=== PATIENT | female | born 1960 | race Caucasian/White ===

== ENCOUNTER → 2016-04-09 | Outpatient (CLI) | payer OTHER ==
--- NOTE | 2016-04-09 17:20 | MA ---
Digital Mammogram Right Breast With iCAD Analysis Clinical Indications: Evaluate palpable area identified by the patient in the outer right breast. Technique: Standard cephalocaudal projection of the right breast is obtained. Digital breast tomosynt hesis was performed in the MLO projection with reconstruction at 1.0 mm slice thickness and composite MLO views reconstructed. Additional oblique and true lateral spot compression views are also perform ed. This examination is processed by the iCAD computer aided detection system. Comparison: August 2015, April 2013, March 2010. Breast density: Type B; Scattered fibroglandular densities. Findings: CAD was reviewed. There is heterogeneous glandular pattern. No focal discrete abnormality i s seen although there is mild glandular asymmetry at approximately the 9:00 position of the right mikaela ast which may correlate to the palpable area that the patient feels. Impression: Palpable area in the right breast requires further evaluation, BI-RADS 0. Recommendation: Targeted right breast ultrasound which will be subsequently performed today. [facility] will send a result letter to the patient.
--- NOTE | 2016-04-09 18:41 | US ---
Right Breast Ultrasound History: Evaluate palpable area in the outer right breast detected by the patient's healthcare provi olivia. Additionally, evaluation of the central right breast is performed to assess for mild glandular asymmetry noted on the unilateral diagnostic mammographic study performed earlier today. Technique: Longitudinal and transverse images were obtained utilizing a 15-MHz transducer. The stud y is interpreted in conjunction with diagnostic mammography from earlier today. Findings: No discrete palpable abnormality is identified on my physical examination. Sonographic in terrogation of the right breast demonstrates scattered fibroglandular elements. No solid or cystic m ass is seen. Impression: Benign findings when considering mammographic and sonographic assessment, BI-RADS 2. Recommendation: Resume routine mammographic screening in August 2016 as long as physical examination i s negative. Findings and follow-up recommendations were reviewed with the patient in detail. [facility] will send a result letter to the patient.
== END ==
LOC: FIMAGING 12:16
PROVIDERS: ATTEND Obstetrics & Gynecology Gynecology
DX: R92.8 Other abnormal and inconclusive findings on diagnostic imaging of breast (principal)
CPT/HCPCS: G0206; G0279

== ENCOUNTER 2017-01-03 13:44 | Emergency (ER) | payer OTHER ==
[2017-01-03 13:59] VITALS: TEMP 98.6
[2017-01-03 14:49] LABS: % IMMATURE GRANULYOCYTES 0.2 % (0.0-1.1); ABSOLUTE IMMATURE GRANULOCYTES 0.01 10^3/uL (0.00-0.10); ADD DIFF? NO; ADD MORPH? NO; ADD SCAN? NO; ATYPICAL LYMPHOCYTE FLAG 0 (0-99); FRAGMENT RBC FLAG 0 (0-99); HEMOGLOBIN 13.2 g/dL (12.6-16.3); LEFT SHIFT FLG 0 (0-99); LIPEMIA HEMOLYSIS FLAG 90 (0-99); MEAN CELL HEMOGLOBIN 33.4 pg (27.9-34.1); MEAN CELL HEMOGLOBIN CONCENTR. 33.8 g/dL (32.4-36.7); MEAN CELL VOLUME 98.7 fL (81.5-99.8); MEAN PLATELET VOLUME 8.2 fL (8.7-11.7); PLATELET CLUMPS FLAG 10 (0-99); PLATELET COUNT 322 10^3/uL (150-400); RED BLOOD CELL COUNT 3.95 10^6/uL (4.18-5.33); RED CELL DISTRIBUTION WIDTH 12.2 % (11.5-15.2)
[2017-01-03 15:07] LABS: ANION GAP 9 mEq/L (8-16); CALCIUM 9.7 mg/dL (8.5-10.4); CARBON DIOXIDE 20 mEq/l (22-31); CHLORIDE 107 mEq/L (97-110); CREATININE 0.7 mg/dL (0.6-1.0); GLOMERULAR FILTRATION RATE > 60; GLUCOSE 112 mg/dL (70-100); POTASSIUM 4.4 mEq/L (3.5-5.2); SODIUM 136 mEq/L (134-144)
[2017-01-03] MEDS ORDERED: IOPAMIDOL (ISOVUE-300) 100 ML BTL ONE (15:53)
--- NOTE | 2017-01-03 17:02 | EDPHY ---
H & P Time Seen by Provider: 01/03/17 14:06 HPI/ROS: CHIEF COMPLAINT: Abdominal pain HISTORY OF PRESENT ILLNESS: 57-year-old female presents to the emergency department with a 2 week history of right lower quadrant abdominal pain. She denies any known trauma or injury. No nausea or vomiting. She has had some intermittent diarrhea. She does report that she is moving a lot of heavy boxes. No back pain. No urinary symptoms. She is postmenopausal. She denies chest pain or difficulty breathing. Denies urinary symptoms. REVIEW OF SYSTEMS: Constitutional: No fever, no chills. Eyes: No double or blurry vision. ENT: No sore throat. Respiratory: No cough, no shortness of breath. Cardiac: No chest pain. Gastrointestinal: Abdominal pain as above. Diarrhea. No vomiting. Genitourinary: No dysuria. Musculoskeletal: No neck or back pain. Skin: No rashes. Neurological: No headache. Past Medical/Surgical History: Anxiety, kidney stones Social History: and lives in [place] Smoking Status: Never smoked Physical Exam: General Appearance: Alert, no distress. Afebrile. Eyes: Pupils equal and round. Extraocular motions are all intact. ENT: Mouth: Mucous membranes moist. Respiratory: No wheezing, rhonchi, or rales, lungs are clear to auscultation. Cardiovascular: Regular rate and rhythm. Gastrointestinal: Abdomen is soft. She has localized tenderness with palpation in the right lower quadrant. There is no rebound, guarding or masses noted. No CVA tenderness bilaterally. With the patient standing up and performing Valsalva maneuver, she has a slight bulge in her right lower quadrant in her right groin. This is easily reducible. When she is lying supine it resolves. No CVA tenderness bilaterally. Neurological: Alert and oriented x 3, cranial nerves II through XII grossly intact Skin: Warm and dry, no rashes. Musculoskeletal: Nontender to palpate along the cervical, thoracic or lumbar spine. Neck is supple. Extremities: Full range of motion and no peripheral edema. Psychiatric: Patient is oriented X 3, there is no agitation. Constitutional: Initial Vital Signs Temperature (C) 37.0 C 01/03/17 13:57 Heart Rate 77 01/03/17 13:57 Respiratory Rate 18 01/03/17 13:57 Blood Pressure 141/119 H 01/03/17 13:57 O2 Sat (%) 96 01/03/17 13:57 O2 Delivery Mode Room Air Allergies/Adverse Reactions: Sulfa (Sulfonamide Antibiotics) [Sulfa(Sulfonamide Antibiotics)] Allergy ( Unknown, Verified 01/03/17 14:00) Home Medications: Medication Instructions Recorded busPIRone [Buspar (*)] 15 mg PO DAILY 10/17/15 traZODone [traZODONE 50MG (*)] 50 - 100 mg PO HS PRN 10/17/15 Activella 0.5-0.1 mg Tablet 01/03/17 Viibryd 01/03/17 Medical Decision Making - Diagnostics Imaging Results: Imaging Impressions Abdomen Ultrasound 01/03/17 14:38 Impression: No free fluid or identifiable appendix. Findings discussed with Emergency Department physician child care assistant, Kelin Maldonado PA-C on January 03, 2017 at 1543 hours. Pelvic/Renal Ultrasound 01/03/17 14:38 Impression: 1. Benign small simple cyst in the left ovary is unchanged since 5 years prior. 2. No free fluid or evidence of torsion. Findings discussed with Emergency Department physician, Kelin Maldonado PA-C on January 03, 2017 [address] 01/03/17 15:41 Impression: 1. No acute findings in the abdomen or pelvis. 2. Periumbilical hernia. 3. Left ovarian cyst. Limited change since 2011 there is benign in etiology, however annual follow-up is recommended for a cyst of this size in a postmenopausal patient. 4. Additional findings as above. Findings discussed with Kelin Maldonado on January 03, 2017 at 1637 hours. Imaging: Discussed imaging studies w/ order desk caller Radiologist ED Course/Re-evaluation: 57-year-old female presents to the emergency department with right lower quadrant abdominal pain that has been present for last 2 weeks. Patient does have reproducible pain with palpation in the right lower quadrant. With the patient standing up and having the patient perform Valsalva maneuver, she does have localized pain in her right lower quadrant especially in her right inguinal area that has a slight bulge when she performs Valsalva maneuver. When she lies supine, the pain and swelling resolved. Pelvic ultrasound was within normal limits. Left ovarian cyst noted. Radiologist recommended follow-up ultrasound in 1 year to make sure that the left ovarian cyst has resolved since she is postmenopausal. Unable to visualize the appendix on ultrasound therefore CT scan of the abdomen and pelvis was ordered which revealed normal appearing appendix. The patient is comfortable being discharged home. I did speak with the on-call OBGYN who recommended follow up with general surgeon for possible inguinal hernia. This patient certainly does not have any evidence of incarcerated hernia. Her pain resolved when she lies flat. She does have a history of lifting heavy objects. He I encouraged the patient to return to the emergency department if she developed worsening pain or if she felt worse in any way. Differential Diagnosis: Including but not limited to right inguinal hernia, acute appendicitis, ovarian cyst, ovarian torsion, carcinoma, urinary tract infection, pyelonephritis - Data Points Laboratory Results: Laboratory Results 01/03/17 14:35 01/03/17 14:35 01/03/17 01/03/17 14:35 14:35 WBC 5.87 10^3/uL 10^3/uL (3.80-9.50) RBC 3.95 10^6/uL L 10^6/uL (4.18-5.33) Hgb 13.2 g/dL g/dL (12.6-16.3) Hct 39.0 % % (38.0-47.0) MCV 98.7 fL fL (81.5-99.8) MCH 33.4 pg pg (27.9-34.1) MCHC 33.8 g/dL g/dL (32.4-36.7) RDW 12.2 % % (11.5-15.2) Plt Count 322 10^3/uL 10^3/uL (150-400) MPV 8.2 fL L fL (8.7-11.7) Neut % (Auto) 61.4 % % (39.3-74.2) Lymph % (Auto) 28.1 % % (15.0-45.0) Phillips % (Auto) 8.5 % % (4.5-13.0) Eos % (Auto) 1.5 % % (0.6-7.6) Baso % (Auto) 0.3 % % (0.3-1.7) Nucleat RBC Rel Count 0.0 % % (0.0-0.2) Absolute Neuts (auto) 3.60 10^3/uL 10^3/uL (1.70-6.50) Absolute Lymphs (auto) 1.65 10^3/uL 10^3/uL (1.00-3.00) Absolute Monos (auto) 0.50 10^3/uL 10^3/uL (0.30-0.80) Absolute Eos (auto) 0.09 10^3/uL 10^3/uL (0.03-0.40) Absolute Basos (auto) 0.02 10^3/uL 10^3/uL (0.02-0.10) Absolute Nucleated RBC 0.00 10^3/uL 10^3/uL (0-0.01) Immature Gran % 0.2 % % (0.0-1.1) Immature Gran # 0.01 10^3/uL 10^3/uL (0.00-0.10) Sodium 136 mEq/L mEq/L (134-144) Potassium 4.4 mEq/L mEq/L (3.5-5.2) Chloride 107 mEq/L mEq/L (97-110) Carbon Dioxide 20 mEq/l L mEq/l (22-31) Anion Gap 9 mEq/L mEq/L (8-16) BUN 16 mg/dL mg/dL (7-23) Creatinine 0.7 mg/dL mg/dL (0.6-1.0) Estimated GFR > 60 Glucose 112 mg/dL H mg/dL (70-100) Calcium 9.7 mg/dL mg/dL (8.5-10.4) Departure - Departure Disposition: Home, Routine, Self-Care Clinical Impression: Abdominal pain Qualifiers: Abdominal location: left lower quadrant Qualified Code(s): R10.32 - Left lower quadrant pain Inguinal hernia Qualifiers: Obstruction and gangrene presence: without obstruction or gangrene Laterality: unilateral Recurrence: non-recurrent Qualified Code(s): K40.90 - Unilateral inguinal hernia, without obstruction or gangrene, not specified as recurrent Condition: Good Instructions: Inguinal Hernia (ED), Acute Abdominal Pain (ED) Additional Instructions: Abdominal Pain: Return to the Emergency Department immediately for increasing pain, fever, vomiting, or if not completely better in 8-12 hours. Avoid any heavy lifting or any activity that causes increasing pain. You have a small left ovarian cyst that was noted under pelvic ultrasound. You should have repeat ultrasound in 1 year since you are postmenopausal to make sure that this has completely resolved. Referrals: Jayla Tirado MD [Primary Care Provider] - As per Instructions Hiren Roach MD [Medical Doctor] - 2-3 days, call for appt. (General surgeon on-call)
[2017-01-03 17:18] VITALS: BP 131/88; PULSE 70; RESP 16; O2SAT 95
== END 2017-01-03 17:17 | disposition home or self-care (01) ==
DX: K40.90 Unilateral inguinal hernia, without obstruction or gangrene, not specified as recurrent (principal)
CPT/HCPCS: Q9967

== ENCOUNTER → 2017-05-04 | Outpatient (CLI) | payer BC, OTHER | LOC: FIMAGING 12:55 | PROVIDERS: ATTEND Family Medicine | DX: Z12.31 Encounter for screening mammogram for malignant neoplasm of breast (principal) ==

== ENCOUNTER → 2018-05-10 | Outpatient (CLI) | payer BC | LOC: FIMAGING 12:03 | PROVIDERS: ATTEND Family Medicine | DX: Z12.31 Encounter for screening mammogram for malignant neoplasm of breast (principal); Z80.3 Family history of malignant neoplasm of breast ==